=== PATIENT | female | born 2005 | race Two or more races ===

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

== ENCOUNTER 2024-10-02 15:40 | Outpatient (REF) | payer MEDICAID, SELFPAY ==
--- OUTSIDE RECORDS SUMMARY | 2024-10-02 17:56 | XMS_ITS | Encounter Summary ---
Author Organization [facility] Address [address] [place] [address] Phone Care Team Providers Care Medicare Specialist Name Role Phone Marie Aceves NP Primary Care Provider [phone] Encounter Details Date Type Department Care Team (Late st Contact Info) Description 03/25/2017 Conversion Encounter [facility] - [address] [address] Social History Tobacco Use Types Packs/Day Years Used Date Smoking Tobacco: Never Assessed Comments Unknown Sex and Gender Information Value Date Recorded Sex Assigned at Not on file Legal Sex Female 4:40 PM EDT Gender Identity Not on file Sexual Orientation Not on file documented as of this encounter Plan of Treatment Not on file documented as of this encounter Visit Diagnoses Not on filedocumented in this encounter Care Teams Medicare Specialist Relationship Specialty Start Date End Date Marie Aceves NP PCP - General 03/19/17 documented as of this encounter
--- OUTSIDE RECORDS SUMMARY | 2024-10-02 17:56 | XMS_ITS | Encounter Summary ---
Author Organization [facility] Address [address] [place] [phone] Phone Care Team Providers Care Supervisor Power Reactor Name Role Phone Marie Aceves NP Primary Care Provider [phone] Encounter Details Date Type Department Care Team (Late st Contact Info) Description 03/20/2011 Documentation [facility] [address] [place] [address] Family Medicine, Physician [address] [place], [place] [id number] Social History Tobacco Use Types Packs/Day Years [...] on filedocumented in this encounter Care Teams Supervisor Power Reactor Relationship Specialty Start Date End Date Marie Aceves NP PCP - General 03/19/17 documented as of this encounter
--- OUTSIDE RECORDS SUMMARY | 2024-10-02 17:56 | XMS_ITS | Encounter Summary ---
Author Organization [facility] Address [address] [place] [address] Phone Care Team Providers Care Aegis Console Operator Track Name Role Phone Marie Aceves NP Primary Care Provider [phone] Encounter Details Date Type Department Care Team (Late st Contact Info) Description 01/01/2012 Documentation [facility] [place] Family Medicine [address] [place] [address] Family Medicine, Physician [address] [place], [place] [address] Social History Tobacco Use Types Packs/Day Years [...] on filedocumented in this encounter Care Teams Aegis Console Operator Track Relationship Specialty Start Date End Date Marie Aceves NP PCP - General 03/19/17 documented as of this encounter
--- OUTSIDE RECORDS SUMMARY | 2024-10-02 17:56 | XMS_ITS | Encounter Summary ---
Author Organization [facility] Address [address] [place] [phone] Phone Care Team Providers Care Emg Technician Name Role Phone Marie Aceves NP Primary Care Provider [phone] Encounter Details Date Type Department Care Team (Late st Contact Info) Description 03/20/2011 Documentation [facility] [address] [place] [address] Family Medicine, Physician [address] [place], [place] [phone] Social History Tobacco Use Types Packs/Day Years [...] on filedocumented in this encounter Care Teams Emg Technician Relationship Specialty Start Date End Date Marie Aceves NP PCP - General 03/19/17 documented as of this encounter
--- OUTSIDE RECORDS SUMMARY | 2024-10-02 17:56 | XMS_ITS | Encounter Summary ---
Author Organization [facility] Address [address] [place] [phone] Phone Care Team Providers Care Employer Relations Representative Name Role Phone Marie Aceves NP Primary Care Provider [phone] Encounter Details Date Type Department Care Team (Late st Contact Info) Description 05/07/2011 Documentation [facility] [address] [place] [address] Family Medicine, Physician [address] [place], [place] [address] Social History Tobacco Use Types Packs/Day Years [...] on filedocumented in this encounter Care Teams Employer Relations Representative Relationship Specialty Start Date End Date Marie Aceves NP PCP - General 03/19/17 documented as of this encounter
--- OUTSIDE RECORDS SUMMARY | 2024-10-02 17:56 | XMS_ITS | Encounter Summary ---
Author Organization [facility] Address [address] [place] [address] Phone Care Team Providers Care Hvac Estimator Name Role Phone Marie Aceves NP Primary Care Provider [phone] Encounter Details Date Type Department Care Team (Late st Contact Info) Description 07/29/2011 Documentation [facility] Family Medicine [address] [place] [address] Family Medicine, Physician [address] [place], [place] [phone] Social History Tobacco Use Types Packs/Day Years [...] on filedocumented in this encounter Care Teams Hvac Estimator Relationship Specialty Start Date End Date Marie Aceves NP PCP - General 03/19/17 documented as of this encounter
--- OUTSIDE RECORDS SUMMARY | 2024-10-02 17:56 | XMS_ITS | Encounter Summary ---
Author Organization [employer] Address [address] [place] [address] Care Team Providers Care Metal Bonding Helper Name Role Phone Hoa Dacosat NP Primary Care Provider [phone] Reason for Visit * Reason Comments Breast Pain Encounter Details Date Type Department Care Team ([facility] st Contact Info) Description 10/02/2024 2:40 PM EST Office Visit [facility] [address] [place] [address] Breast pain in female (Primary Dx); Encounter for smoking cessation counseling Social History Tobacco Use Types Packs/Day Years Used Date Smoking Tobacco: Never Smokeless Tobacco: Never Alcohol Use Standard Drinks/Week Comments Not Currently 0 (1 standard drink = 0.6 oz pure alcohol) drinks occassionally, once every 2-3 months Alcohol Answer Date Recorded How often do you have a drink containing alcohol ? 0 04/26/2024 How many drinks containing a lcohol do you have on a typical day when you are drinking? 0 04/26/2024 How often do you have six or more drinks on one occasion? 0 04/26/2024 Depression Answer Date Recorded Patient Health Questionnaire-9 Score 6 04/26/2024 Patient Health Questionnaire-9 Score 6 04/26/2024 Last PHQ-9: Questionnaire Data Not on file 0 04/26/2024 Housing Stability Answer Date Recorded What is your housing situation today? I have ki ny 04/26/[address] you li ve. Do you have problems with any of the following? Water leaks 04/26/2024 Food Insecurity Answer Date Recorded Within the past 12 months, y ou worried that your food would run out before you got money to buy more: Sometimes True 2023 Within the past 12 months,th e food you bought just didn't last and you didn't have enough money to get more: Often true 04/26/2024 Transportation Answer Date Recorded In the past 12 months, has l ack of transportation kept you from medical appts, meetings, work or from getting things needed for daily living? Yes, it has kept me from non-medical meetings, work, or getting things that I need 04/26/2024 Utilities Answer Date Recorded In the past 12 months, has t he [employer], gas, oil or water [employer] threatened to shut off services in your home? Yes 04/26/2024 Depression Answer Date Recorded Patient Health Questionnaire-2 Score 2 04/26/2024 Internet Access Answer Date Recorded Internet Access Q1 Yes 04/26/2024 Internet Access Q2 Not on file 04/26/2024 Comments Unknown Sex and Gender Information Value Date Recorded Sex Assigned at Female 06/08/2022 10:19 AM EDT Legal Sex Female 10:19 AM EDT Gender Identity Female 06/08/2022 10:19 AM EDT Sexual Orientation Straight 06/08/2022 10 :19 AM EDT documented as of this encounter Last Filed Vital Signs Vital Sign Reading Time Taken Comments Blood Pressure 126/81 10/02/2024 2:53 PM EST Pulse 88 10/02/2024 2:53 PM EST Temperature 36.7 ??C (98 ??F) 10/02/2024 2:53 PM EST Respiratory Rate 16 10/02/2024 2:53 PM EST Oxygen Saturation - - Inhaled Oxygen Concentration - - Weight 90.3 kg (199 lb) 10/02/2024 2:53 PM EST Height - - Body Mass Index 36.4 04/26/2024 2:11 PM EDT documented in this encounter Plan of Treatment Upcoming Encounters Date Type Department Care Team (Late st Contact Info) Description 10/16/2024 1:30 PM EDT Office Visit [facility] [address] [place] [address] Hoa Dacosta NP [address] [place] [address] documented as of this encounter Visit Diagnoses Diagnosis Breast pain in female- Primary Mastodynia Encounter for smoking cessation counseling documented in this encounter Additional Health Concerns Assessment Noted Time PHQ-9 Depression Total Score: 6 04/26/20 24 2:15 PM EDT documented as of this encounter Care Teams Metal Bonding Helper Relationship Specialty Start Date End Date Hoa Dacosta NP [address] [place] [address] PCP - General Family Medicine 08/05/23 documented as of this encounter
--- OUTSIDE RECORDS SUMMARY | 2024-10-02 17:56 | XMS_ITS | Clinical Summary ---
Author Organization [employer] Address [address] [facility] 7[address] [place] [address] Care Team Providers Care Correctional Officer Chief Name Role Phone Hoa Dacosta NP Primary Care Provider [phone] Allergies Active Allergy Reactions Criticality Noted Date Comments Cat Dander 04/26/2024 Shrimp Flavor Agent (Non-Screening) Anaphylaxis High 04/26/2024 Hives and throat swelling Medications albuterol (ProAir HFA) 108 (90 Base) MCG/ACT inhaler 1 puff by inhalation route every 4 to 6 hours ;administer with spacer prn shortness of breath or wheezing 2 Active EPINEPHrine (EpiPen 2-Marcus) 0.3 MG/0.3ML injection syringe Take 0.3mg IM prn anaphylaxis 9 Active baclofen (Lioresal) 10 MG tabletIndicatio ns:Musculoskele ni pain Take one tablet Bid as needed back pain 30 tablet 4 Active nicotine polacrilex (Nicorette) 2 MG gumIndications: Encounter for smoking cessation counseling Chew 1 each (2 mg) if needed in the morning, at noon, in the evening, and at bedtime for smoking cessation. 100 each 1 5 11/22/19 25 Active Active Problems Problem Noted Date Diagnosed Date Encounter for physical examination 07/17/2024 Assessment & Plan (07/17/2024 12:05 PM EST): -age appropriate screening and immunizations up to date. Declined STI screening -low cardiovascular risk -mental health screening with moderate results -healthy social behaviors encouraged -anticipatory guidance reviewed: diet, exercise Amenorrhea 07/17/2024 Assessment & Plan (07/17/2024 12:08 PM EST): -secondary amenorrhea -patient declined testing as she has been abstinent -last ordered to eval for metabolic causes -will complete imaging pending lab results -advised close tracking -follow-up in 1 month. Will consider progesterone challenge pending negative tests and continued missed menses Generalized anxiety disorder 06/10/2016 Obesity (BMI 30-39.9) 11/03/2013 Assessment & Plan (07/17/2024 12:04 PM EST): -Healthy diet and exercise teaching completed: Eat a variety of fruit and vegetables, whole grains such as whole-wheat flour, bulgur (cracked wheat), oatmeal, and brown rice. Intake protein from beans, nuts, fish, and lean meats. Eat low-fat or fat- free dairy products. Limit highly processed foods such as hot dogs, sandwich meat, etc. Engage in minimum of 150 min of moderate intensity exercise weekly -labs ordered to assess for endocrine contribution and resulting metabolic effects Asthma 07/27/2012 Encounters Date Type Department Care Team Description 10/02/2024 2:40 PM EST Office Visit [facility] [address] [place] [address] Breast pain in female (Primary Dx); Encounter for smoking cessation counseling 07/24/[address] [facility] [address] [place] [phone] Hoa Dacosta NP No Show 07/17/[address] [facility] [address] [place] [address] Hope Naylor MA chartprep from Last 3 Months Immunizations Name Administration Dates Next Due DTaP 04/23/2009,05/11/2007,09/10/2006 DTaP / Hep B / IPV 07/08/2006,11/27/2005 DTaP, 5 pertussis antigens 07/08/2006,11/27/2005 HPV 9-Valent 11/15/2015,07/16/2015,05/13/2015 Hep A, ped/adol, 2 dose 01/16/2016,07/16/2015 Hep B, Adolescent or Pediatric 09/10/2006,2005,11/27/2005 Hib (HbOC) 07/08/2006 IPV 04/23/2009, 7,07/08/2006,11/27 Influenza injectable quadriv alent preservative free 05/04/2019,06/05/2016,05/13/2015 Influenza, Split (incl. leonardo fied surface antigen) 07/27/2012,05/06/2011,07/02/2010 Influenza, seasonal, injecta ble, preservative free 04/26/2024 MMR 04/23/2009,11/27/2005 Meningococcal MCV4P [id number] 05/13/2015 Pneumococcal Conjugate PCV 7 07/08/2006 Tdap 05/13/2015 Varicella 04/23/2009,11/27/2005 Family History Medical History Relation Name Comments Diabetes Father Hyperlipidemia Mother Relation Name Status Comments Father Mother Social History Tobacco Use Types Packs/Day Years Used Date Smoking Tobacco: Never Smokeless Tobacco: Never Tobacco Cessation:Counseling Given: Not Answered Alcohol Use Standard Drinks/Week Comments Not Currently [...] your housing situation today? I have ki yanely 04/26/[address] you li [...] the past 12 months, has t he electric, gas, oil or water company threatened to shut off services in your [...] Orientation Straight 06/08/2022 10 :19 AM EDT Last Filed Vital Signs Vital Sign Reading Time Taken Comments Blood Pressure 126/81 10/02/2024 2:53 PM EST Pulse 88 10/02/2024 2:53 PM EST Temperature 36.7 ??C (98 ??F) 10/02/2024 2:53 PM EST Respiratory Rate 16 10/02/2024 2:53 PM EST Oxygen Saturation 98% 04/26/2024 2:11 PM EDT Inhaled Oxygen Concentration - - Weight 90.3 kg (199 lb) 10/02/2024 2:53 PM EST Height 157.5 cm (5' 2 ) 04/26/2024 2:11 PM EDT Body Mass Index 36.4 04/26/2024 2:11 PM EDT Plan of Treatment Upcoming Encounters Date Type Department Care Team (Late st Contact Info) Description 10/16/2024 1:30 PM EDT Office Visit [facility] [address] [place], [place] [phone] Hoa Dacosta NP [address] [place] [address] Health Maintenance Due Date Last Done Comments Chlamydia and Gonorrhea Screening 2004 HIV Screening 2004 Lipid Panel 2004 Family Planning (PISQ) 2019 Hepatitis C Screening 2022 Pneumococcal Vaccine: Pediatrics (0 to 5 Years) and At-Risk Patients (6 to 49) Years) (1 of 2 - PCV) 2023 07/08/2006 COVID-19 Vaccine (1 - 2023- season) 2024 Alcohol/Substance Use Screening 04/26/2025 04/26/2024 Depression Screening 04/26/2025 04/26/2024, 04/26/20 24 SDOH Screening 04/26/2025 04/26/2024 Tobacco Screening 04/26/2025 04/26/2024 DTaP/Tdap/Td Vaccines (7 - Td or Tdap) 05/13/2025 05/13/2015, 04/23/2009, 05/11/2007, Additional history exists Zoster Vaccines (1 of 2) 2054 RSV Patients and Patients Aged 60 years or older (1 - 1-dose 75+ series) 2079 HIB Vaccines Completed 07/08/2006 Hepatitis B Vaccines Completed 09/10/2006, 07/08/2006, 07/08/2006, Additional history exists IPV Vaccines Completed 04/23/2009, 09/2006, 07/08/2006, Additional history exists Meningococcal Vaccine Aged Out 05/13/2015 No urszula bettina eligible based on patient's age to complete this topic HPV Vaccines Completed 11/15/2015, 03/2015, 05/13/2015 Hepatitis A Vaccines Completed 01/16/2016, 07/16/20 15 Influenza Vaccine Completed 04/26/2024, , 06/05/2016, Additional history exists RSV under 20 months Aged Out No longe r eligible based on patient's age to complete this topic Rotavirus Vaccines Aged Out No longer eligible based on patient's age to complete this topic Insurance [facility] C3 Care Teams Correctional Officer Chief Relationship Specialty Start Date End Date Hoa Dacosta NP [address] [place] [phone] PCP - General Family Medicine 08/05/23
--- OUTSIDE RECORDS SUMMARY | 2024-10-02 17:56 | XMS_ITS | Encounter Summary ---
Author Organization [facility] Address [address] [place] [address] Phone Care Team Providers Care Steaming Machine Operator Name Role Phone Marie Aceves NP Primary Care Provider [phone] Encounter Details Date Type Department Care Team (Late st Contact Info) Description 01/12/2011 Documentation [facility] Family [facility] [address] [place] [address] Family Medicine, Physician [address] [place], [place] [address] Social History Tobacco Use Types Packs/Day Years [...] on filedocumented in this encounter Care Teams Steaming Machine Operator Relationship Specialty Start Date End Date Marie Aceves NP PCP - General 03/19/17 documented as of this encounter
--- OUTSIDE RECORDS SUMMARY | 2024-10-02 17:56 | XMS_ITS | Encounter Summary ---
Author Organization [facility] Address [address] [place] [address] Phone Care Team Providers Care Sales Planning Manager Name Role Phone Marie Aceves NP Primary Care Provider [phone] Encounter Details Date Type Department Care Team (Late st Contact Info) Description 07/30/2011 Documentation [facility] Family Medicine [address] [place] [address] Family Medicine, Physician [address] [place], [place] [phone] Social History Tobacco Use Types Packs/Day Years [...] on filedocumented in this encounter Care Teams Sales Planning Manager Relationship Specialty Start Date End Date Marie Aceves NP PCP - General 03/19/17 documented as of this encounter
--- OUTSIDE RECORDS SUMMARY | 2024-10-02 17:56 | XMS_ITS | Encounter Summary ---
Author Organization [facility] Address [address] [place] [address] Phone Care Team Providers Care Carpenter Assistant Installer Name Role Phone Marie Aceves NP Primary Care Provider [phone] Encounter Details Date Type Department Care Team (Late st Contact Info) Description 03/19/2011 Documentation [facility] Family Medicine [address] [place] [address] Family Medicine, Physician [address] [place], [place] [phone] Social History Tobacco Use Types Packs/Day Years [...] on filedocumented in this encounter Care Teams Carpenter Assistant Installer Relationship Specialty Start Date End Date Marie Aceves NP PCP - General 03/19/17 documented as of this encounter
--- OUTSIDE RECORDS SUMMARY | 2024-10-02 17:56 | XMS_ITS | Clinical Summary ---
Author Organization [facility] Address [address] [place] [address] Phone Care Team Providers Care Ecological Economist Name Role Phone OcalaMarie canales YONATHAN Primary Care Provider [phone] Immunizations Immunization Administration Dates Next Due DTaP 04/23/2009,05/11/2007,09/10/2006 DTaP / Hep B / IPV 07/08/2006,11/27/2005 Hep B, ped/adol 09/10/2006 Hib (HbOC) 07/08/2006 IPV 04/23/2009,09/10/2006 Influenza Split 05/06/2011,07/02/2010 MMR 04/23/2009,11/27/2005 Pneumococcal Conjugate 07/08/2006 Varicella 04/23/2009,11/27/2005 Family History Relation Name Status Comments Sister Alive Sister: Alive a nd well Social History Tobacco Use Types Packs/Day Years Used Date Smoking Tobacco: Never Assessed Comments Unknown Sex and Gender Information Value Date Recorded Sex Assigned at Not on file Legal Sex Female 4:40 PM EDT Gender Identity Not on file Sexual Orientation Not on file Last Filed Vital Signs Vital Sign Reading Time Taken Comments Blood Pressure 98/70 07/29/2011 12:00 AM EST Pulse - - Temperature 35.2 ??C (95.4 ??F) 05/06/2011 12:00 AM E DT Respiratory Rate - - Oxygen Saturation - - Inhaled Oxygen Concentration - - Weight 26.3 kg (58 lb) 07/29/2011 12:00 AM EST Height 120.1 cm (3' 11.3 ) 07/29/2011 12:[address] Body Mass Index 18.23 07/29/2011 12:00 AM EST Plan of Treatment Health Maintenance Due Date Last Done Comments DTaP,Tdap,and Td Vaccines (6 - Tdap) 2015 04/23/2009, 05/11/2007, 09/10/2006, Additional history exists HPV Vaccines (1 - 3-dose series) 2019 Men B Vaccine (1 of 2 - Standard) 2020 Influenza Vaccines (#1) 2024 05/06/2011, 07/02 COVID-19 Vaccine ( - season) 2024 HIB Vaccines Completed 07/08/2006 Pneumococcal Vaccine Completed 07/08/2006 Hepatitis B Vaccines Completed 09/10/2006, 07/08/2006, 11/27/2005 IPV Vaccines Completed 04/23/2009, 09/2006, 07/08/2006, Additional history exists MMR Vaccines Completed 04/23/2009, 11/27/2005 Varicella Vaccines Completed 04/23/2009, 11/27/2005 Hepatitis A Vaccines Aged Out No long er eligible based on patient's age to complete this topic Meningococcal Vaccine Aged Out No urszula bettina eligible based on patient's age to complete this topic Care Teams Ecological Economist Relationship Specialty Start Date End Date Marie Aceves NP PCP - General 03/19/17
[2024-10-02 18:15] LABS: Color Urine Yellow; Glucose Urine UA Negative (Negative); Leukocyte Esterase Urine Negative (Negative); Nitrite Urine Negative (Negative); PH 8.5 (5.0-9.0); Specific Gravity - Urine 1.025 (1.005-1.025); Urine Blood Negative (Negative); Urine Ketones Negative (Negative); Urine Protein Negative (Neg-Trace)
[2024-10-02 18:16] LABS: Appearance Urine Clear
[2024-10-02 18:23] LABS: Bacteria Urine None Seen (None Seen); Hyaline Casts Urine 0-2 /LPF (0-2); RBC Urine 0-2 /HPF (0-2); Squamous Epithelial Cell Urine 0-2 /HPF (0-2); WBC Urine 0-5 /HPF (0-5)
[2024-10-02 18:24] LABS: Estimated Average Glucose 103 mg/dL; Hemoglobin A1c % 5.2 % (<6.0)
[2024-10-02 18:36] LABS: Alanine Aminotransferase 10 U/L (0-31); Albumin Level 4.5 g/dL (3.5-5.0); Anion Gap 13 (12-20); Aspartate Amino Transferase 18 U/L (5-31); Bilirubin Total 0.4 mg/dL (0.0-1.0); Blood Urea Nitrogen 8 mg/dL (9-16); Calcium 9.5 mg/dL (8.4-10.2); Carbon Dioxide 25 mmol/L (22-29); Chloride 106 mmol/L (96-108); Cholesterol 169 mg/dL (<200); Estimated Glomerular Filt Rate > 60; Glucose Random 87 mg/dL (60-115); HDL Cholesterol 48 mg/dL (>40); LDL Cholesterol Calculated 101 mg/dL (<100); Potassium 3.9 mmol/L (3.3-5.1); Sodium 140 mmol/L (135-145); Total Protein 8.2 g/dL (6.5-8.0); Triglycerides 102 mg/dL (<150)
[2024-10-02 18:46] LABS: Alkaline Phosphatase 71 U/L (39-117)
[2024-10-02 18:57] LABS: Free T4 (Free Thyroxine) 1.04 ng/dL (0.71-1.85); TSH reflex Free T4 1.33 uIU/mL (0.32-4.0); Vitamin D 25-OH Total 30.3 ng/mL (>30)
[2024-10-03 08:24] LABS: Prolactin 6.6 ng/mL
== END 2024-10-02 15:41 | disposition home or self-care (01) ==
LOC: HO.HHCL 15:40
PROVIDERS: Visit Provider Nurse Practitioner
DX: E66.9 Obesity, unspecified (principal); N91.2 Amenorrhea, unspecified
CPT/HCPCS: 36415; 80053; 80061; 81001; 82306; 83036; 84146; 84439; 84443

== ENCOUNTER 2025-07-20 06:42 | Emergency (ER) | payer MEDICAID, SELFPAY ==
--- NOTE | ~2025-07-20 | US_ITS ---
EXAMINATION: US ABDOMEN LIMITED CLINICAL INFORMATION: Right upper quadrant abdominal pain.. COMPARISON: None available. TECHNIQUE: Real-time ultrasound of the gallbladder is seen grayscale technique. FINDINGS: Gallbladder is fluid-filled without intraluminal abnormality. No pericholecystic fluid collection or gallbladder wall thickening. Common bile duct measures 4 mm. US/US abdomen limited IMPRESSION: No cholelithiasis or choledocholithiasis. Electronically signed by: Enrico Gorman MD 07/20/2025 09:36 AM EST
[2025-07-20 06:49] VITALS: BP 130/75; PULSE 116; O2SAT 97
[2025-07-20 07:08] VITALS: BP 111/69; PULSE 101; RESP 18; TEMP 36.7; O2SAT 97; BMI 33.3
--- OUTSIDE RECORDS SUMMARY | 2025-07-20 07:15 | XMS_ITS | Encounter Summary ---
Author Organization [facility] Address [address] [place] [phone] Phone Care Team Providers Care Radiology Resident Name Role Phone Marie Aceves NP Primary Care Provider [phone] Encounter Details Date Type Department Care Team (Late st Contact Info) Description 03/19/2011 Documentation [facility] Family Medicine [address] [place] [address] Family Medicine, Physician [address] [place], [place] [phone] Social History Tobacco Use Types Packs/Day Years [...] on filedocumented in this encounter Care Teams Radiology Resident Relationship Specialty Start Date End Date Marie Aceves NP PCP - General 03/19/17 documented as of this encounter
--- OUTSIDE RECORDS SUMMARY | 2025-07-20 07:15 | XMS_ITS | Encounter Summary ---
Author Organization [facility] Address [address] [place] [address] Phone Care Team Providers Care Information Clerk Brokerage Name Role Phone Marie Aceves NP Primary Care Provider [phone] Encounter Details Date Type Department Care Team (Late st Contact Info) Description 03/25/2017 Conversion Encounter [facility] - [address] [address] Social History Tobacco Use Types Packs/Day Years [...] on filedocumented in this encounter Care Teams Information Clerk Brokerage Relationship Specialty Start Date End Date Marie Aceves NP PCP - General 03/19/17 documented as of this encounter
--- OUTSIDE RECORDS SUMMARY | 2025-07-20 07:15 | XMS_ITS | Clinical Summary ---
Author Organization [facility] Address [address] [place] [address] Phone Care Team Providers Care Fly Worker Name Role Phone YolaMarie YONATHAN Primary Care Provider [phone] Immunizations Immunization Administration Dates Next Due DTaP [...] AM EST Pulse - - Temperature 35.2 C (95.4 F) 05/06/2011 12:00 AM EDT Respiratory Rate - - Oxygen Saturation - [...] 2 - Standard) 2020 Influenza Vaccines (#1) 2025 05/06/2011, 07/02 COVID-19 Vaccine ( - season) 2025 HIB Vaccines Completed 07/08/2006 Pneumococcal Vaccine Completed [...] age to complete this topic Care Teams Fly Worker Relationship Specialty Start Date End Date Marie Aceves NP PCP - General 03/19/17
--- OUTSIDE RECORDS SUMMARY | 2025-07-20 07:15 | XMS_ITS | Encounter Summary ---
Author Organization [facility] Address [address] [place] [address] Phone Care Team Providers Care Board Mixer Tender Name Role Phone Marie Aceves NP Primary Care Provider [phone] Encounter Details Date Type Department Care Team (Late st Contact Info) Description 07/30/2011 Documentation [facility] [place] [facility] [address] [place] [address] Family Medicine, Physician [address] [place], [place] [phone] Social History Tobacco Use Types Packs/Day Years [...] on filedocumented in this encounter Care Teams Board Mixer Tender Relationship Specialty Start Date End Date Marie Aceves NP PCP - General 03/19/17 documented as of this encounter
--- OUTSIDE RECORDS SUMMARY | 2025-07-20 07:15 | XMS_ITS | Encounter Summary ---
Author Organization [facility] Address [address] [place] [address] Phone Care Team Providers Care Food Service Substitute Name Role Phone Marie Aceves NP Primary Care Provider [phone] Encounter Details Date Type Department Care Team (Late st Contact Info) Description 01/12/2011 Documentation EM Family Medicine [address] [place] [address] Family Medicine, Physician [address] [place], [place] [phone] Social History Tobacco Use Types Packs/Day Years [...] on filedocumented in this encounter Care Teams Food Service Substitute Relationship Specialty Start Date End Date Marie Aceves NP PCP - General 03/19/17 documented as of this encounter
--- OUTSIDE RECORDS SUMMARY | 2025-07-20 07:15 | XMS_ITS | Encounter Summary ---
Author Organization [facility] Address [address] [place] [address] Phone Care Team Providers Care Sales/Marketing Name Role Phone Marie Aceves NP Primary Care Provider [phone] Encounter Details Date Type Department Care Team (Late st Contact Info) Description 07/29/2011 Documentation [facility] Family Medicine [address] [place] [address] Family Medicine, Physician [address] [place], [place] [phone] Social History Tobacco Use Types Packs/Day Years [...] on filedocumented in this encounter Care Teams Sales/Marketing Relationship Specialty Start Date End Date Marie Aceves NP PCP - General 03/19/17 documented as of this encounter
--- OUTSIDE RECORDS SUMMARY | 2025-07-20 07:15 | XMS_ITS | Encounter Summary ---
Author Organization [facility] Address [address] [place] [address] Phone Care Team Providers Care Vocational Horticulture Instructor Name Role Phone Marie Aceves NP Primary Care Provider Encounter Details Date Type Department Care Team (Late st Contact Info) Description 03/20/2011 Documentation [facility] [place] [address] [place] [address] Family Medicine, Physician [address] [place], [place] [phone] Social History Tobacco Use Types Packs/Day Years [...] on filedocumented in this encounter Care Teams Vocational Horticulture Instructor Relationship Specialty Start Date End Date Marie Aceves NP PCP - General 03/19/17 documented as of this encounter
--- OUTSIDE RECORDS SUMMARY | 2025-07-20 07:15 | XMS_ITS | Encounter Summary ---
Author Organization [employer] Address [address] [facility] [address] [place] [address] Care Team Providers Care Patient Case Manager Name Role Phone Hoa Dacosta NP Primary Care Provider [phone] Encounter Details Date Type Department Care Team (Latest Contact Info) Description 07/19/2025 Travel Social History Tobacco Use Types Packs/Day Years [...] is your housing situation today? I have kiponcoh ny 04/26/[address] you [...] AM EDT documented as of this encounter Plan of Treatment Upcoming Encounters Date Type Department Care Team (Late st Contact Info) Description 07/20/2025 9:45 AM EST Office Visit [facility] [address] [place] [address] Hoa Dacosta NP [address] [place] [address] documented as of this encounter Visit Diagnoses Not on filedocumented in this encounter Additional Health Concerns Assessment Noted Time PHQ-9 Depression Total Score: 6 04/26/20 24 2:15 PM EDT documented as of this encounter Care Teams Patient Case Manager Relationship Specialty Start Date End Date Hoa Dacosta NP [address] [place] [address] PCP - General Family Medicine 08/05/23 documented as of this encounter
--- OUTSIDE RECORDS SUMMARY | 2025-07-20 07:15 | XMS_ITS | Encounter Summary ---
Author Organization [facility] Address [address] [place] [address] Phone Care Team Providers Care Family Resource Management Professor Name Role Phone Marie Aceves NP Primary Care Provider [phone] Encounter Details Date Type Department Care Team (Late st Contact Info) Description 05/07/2011 Documentation EM Family Medicine [address] [place] [address] Family Medicine, Physician [address] [place], [place] [phone] Social History Tobacco Use Types Packs/Day Years [...] on filedocumented in this encounter Care Teams Family Resource Management Professor Relationship Specialty Start Date End Date Marie Aceves NP PCP - General 03/19/17 documented as of this encounter
--- OUTSIDE RECORDS SUMMARY | 2025-07-20 07:15 | XMS_ITS | Encounter Summary ---
Author Organization [employer] Address [address] [facility] 7 [place] [address] Care Team Providers Care Lettuce Trimmer Name Role Phone Hoa Dacosta NP Primary Care Provider [phone] Reason for Visit * Reason Onset Date Comments CHARTPREP 07/19/2025 Encounter Details Date Type Department Care Team ([facility] Contact Info) Description 07/19/[address] [facility] [address] [place] [address] Hoa Dacosta NP [address] [place] [address] CHARTPREP Social History Tobacco Use Types Packs/Day Years [...] your housing situation today? I have ki sing 04/26/[address] you li [...] AM EDT documented as of this encounter Miscellaneous Notes * Telephone Encounter - Hope Naylor MA - 07/19/2025 12:58 PM EST Chart Prep Labs: done Images: not done Referrals: not done Vaccines due: Covid, Flu, PCV20, Tdap, and MCV4 Screenings: pap smear, STI screening, and LMP,Hep C screening,family screening,HIV screening,alcohol/substance use screening Overdue care gaps: SBIRT, SDOH, PHQ-9, JEAN CLAUDE-7, Oral health screening, Disability screen, and Tobacco documented in this encounter Plan of Treatment Upcoming Encounters Date Type Department Care Team (Late st Contact Info) Description 07/20/2025 9:45 AM EST Office Visit [facility] [address] [place] [phone] Hoa Dacosta NP [address] [place] [address] documented as of this encounter Visit Diagnoses Not on filedocumented in this encounter Additional Health Concerns Assessment Noted Time PHQ-9 Depression Total Score: 6 04/26/20 24 2:15 PM EDT documented as of this encounter Care Teams Lettuce Trimmer Relationship Specialty Start Date End Date Hoa Dacosta NP [address] [place] [address] PCP - General Family Medicine 08/05/23 documented as of this encounter
--- OUTSIDE RECORDS SUMMARY | 2025-07-20 07:15 | XMS_ITS | Clinical Summary ---
Author Organization [employer] Address [address] [place] [address] [address] [place] [address] Care Team Providers Care Technical Training Manager Name Role Phone Hoa Dacosta NP Primary Care Provider [phone] Allergies Active Allergy Reactions Criticality Noted Date [...] for smoking cessation. 100 each 1 5 Active Active Problems Problem Noted Date Diagnosed [...] Encounters Date Type Department Care Team Description 07/19/2025 Telephone [facility] [address] [place] [phone] Hoa Dacosta NP CHARTPREP 07/19/2025 Travel 07/10/2025 Patient Outreach [address] [address] Hoa Dacosta NP Pre-visit Planning (Pre-visit planning - unable to LVM ( NOT AVAILABLE -See notes ) ) 05/21/2025 Telephone [facility] [address] [place] [phone] Hoa Dacosta NP April recall from Last 3 Months Immunizations Immunization Administration Dates Next Due DTaP [...] 88 10/02/2024 2:53 PM EST Temperature 36.7 C (98 F) 10/02/2024 2:53 PM EST Respiratory Rate 16 [...] Description 07/20/2025 9:45 AM EST Office Visit [facility] [address] [place] [address] Hoa Dacosta NP [address] [place] [address] Health Maintenance Due Date Last Done Comments Chlamydia and Gonorrhea Screening 2004 HIV Screening 2004 Alcohol/Substance Use Screening 2016 Family Planning (PISQ) 2019 Meningococcal B Vaccine (1 of 2 - Standard) 2020 Hepatitis C Screening 2022 Pneumococcal Vaccine: Pediatrics (0 to 5 Years) and At-Risk Patients (6 to 49) Years (1 of 2 - PCV) 2023 07/08/2006 Pap Smear 2025 COVID-19 Vaccine (1 - season) 2025 Influenza Vaccine (#1) 2025 , 05/04/2019, 06/05/2016, Additional history exists Depression Screening 04/26/2025 04/26/2024, 04/26/20 24 SDOH Screening 04/26/2025 04/26/2024 Tobacco Screening 04/26/2025 04/26/2024 DTaP/Tdap/Td Vaccines (7 - Td or Tdap) 05/13/2025 05/13/2015, 04/23/2009, 05/11/2007, Additional history exists Disability Screening 10/02/2025 10/02/2024 Lipid Panel 10/02/2029 10/02/2024 Zoster Vaccines (1 of 2) 2054 RSV [...] Hepatitis A Vaccines Completed 01/16/2016, 07/16/20 15 RSV under 20 months Aged Out No longe r eligible based on patient's age to complete this topic Rotavirus Vaccines Aged Out No longer eligible based on patient's age to complete this topic Procedures Procedure Name Priority Date/Time Associated Diagnosis Comments LIPID PANEL, STANDARD Routine 10/02/2024 3:45 PM EST Obesity (BMI 30-39.9) from Last 3 Months or Most Recently Relevant to Health Maintenance Results * (ABNORMAL) Lipid Panel, Standard (10/02/2024 3:45 PM EST) Triglycerides 102 <150 mg/dL [facility] Comment:Desirable Triglyceri de: less than 150 mg/dLBorderline High Triglyceride 150-199 mg/dLHigh Triglyceride: 200-499 mg/dLVery High Triglyceride: greater than or equal to 5OO mg/dL Cholesterol 169 <200 mg/dL [facility] Comment:Desirable Cholestero l: less than 200 mg/dLBorderline High Cholesterol: 200-239 mg/dLHigh Cholesterol: greater than 239 mg/dL LDL Cholesterol Calculated 101(H) <100 mg/dL [facility] Comment:Desirable LDL: less than 100 mg/dLNear Optimal/Above Optimal LDL: 110- 129 mg/dLBorderline High LDL: 130-159 mg/dLHigh LDL: 160-189 mg/dLVery High LDL: greater than or equal to 190 mg/dL HDL Cholesterol 48 >40 mg/dL [facility] Comment:Desirable HDL: great er than 40 mg/dL Note: This HDL assay may give artificially low results in patients with liver disease. Blood Venous blood specimen / Unknown 10/02/2024 3:45 PM EST 10/02/2024 5:58 PM EST Hoa Dacosta NP LAB BLOOD ORDERABLES Final Resu lt [facility] [address] [place] [phone] from Last 3 Months or Most Recently Relevant to Health Maintenance Insurance [facility] C3 Care Teams Technical Training Manager Relationship Specialty Start Date End Date Hoa Dacosta NP [address] [place] [phone] PCP - General Family Medicine 08/05/23
--- OUTSIDE RECORDS SUMMARY | 2025-07-20 07:15 | XMS_ITS | Encounter Summary ---
Author Organization [facility] Address [address] [place] [phone] Phone Care Team Providers Care Cold Rolling Coordinator Name Role Phone Marie Aceves NP Primary Care Provider [phone] Encounter Details Date Type Department Care Team (Late st Contact Info) Description 01/01/2012 Documentation [facility] [place] [address] [place] [address] Family Medicine, Physician [address] [place], [place] [address] Social History Tobacco Use Types Packs/Day Years [...] on filedocumented in this encounter Care Teams Cold Rolling Coordinator Relationship Specialty Start Date End Date Marie Aceves NP PCP - General 03/19/17 documented as of this encounter
--- OUTSIDE RECORDS SUMMARY | 2025-07-20 07:15 | XMS_ITS | Encounter Summary ---
Author Organization [facility] Address [address] [place] [phone] Phone Care Team Providers Care Wood Ski Maker Name Role Phone Marie Aceves NP Primary Care Provider [phone] Encounter Details Date Type Department Care Team (Late st Contact Info) Description 03/20/2011 Documentation [facility] [place] Family Medicine [address] [place] [address] Family Medicine, Physician [address] [place], [place] [phone] Social History Tobacco Use Types Packs/Day Years [...] on filedocumented in this encounter Care Teams Wood Ski Maker Relationship Specialty Start Date End Date Marie Aceves NP PCP - General 03/19/17 documented as of this encounter
--- NOTE | 2025-07-20 07:57 | ED_ITS ---
HPI - Abdominal Pain General Chief Complaint: Abdominal Pain Stated Complaint: UPPER ABD PAIN,N/V PER EMS Time Seen by Provider: 07/20/25 07:00 Source: patient Mode of arrival: ambulatory Limitations: no limitations History of Present Illness ED Provider: [facility] narrative: The patient is a 20-year-old female presenting with acute onset (?2.5 h ago) burning pain localized above the umbilicus, between the costal margins. She describes a sensation of abdominal ?expansion? with both inward and outward pressure worsening the discomfort. Pain began after limited oral intake yesterday (eggs, ricks, a few snacks) and worsens with eating. Associated nausea is reported; no vomiting. She denies prior similar episodes, gallbladder disease, ovarian pathology, appendicitis, or diarrhea. Mild vaginal discharge present but no vaginal bleeding. She believes menstruation is imminent and feels is unlikely. Patient reports smoking weed. Related Data Previous Rx's ?Medication ?Instructions ?Recorded penicillin V potassium 500 mg 500 mg PO TID #21 tabs 0 10/28/22 tablet famotidine 20 mg tablet 20 mg PO BEDTIME #30 tabs ondansetron 4 mg disintegrating 4 mg PO Q8H PRN nausea and 07/20/25 tablet vomiting #4 tabs sucralfate 1 gram tablet (Carafate) 1 g PO Q6H 7 days #28 tabs 07/20/25 Allergies Allergy/AdvReac Type Severity Reaction Status Date / Time cat dander (CAT) Allergy Unknown SHORTNESS Verified 07/20/25 07:17 OF BREATH shrimp (SHRIMP) Allergy Unknown SHORTNESS Verified 07/20/25 07:17 OF BREATH Review of Systems Review of Systems GI: Positive for epigastric abdominal pain and nausea. Denies diarrhea. /RN LONG TERM CARE: Mild vaginal discharge, denies vaginal bleeding; possible imminent menses. All other systems not specifically discussed. Constitutional: Reports as per [facility] Social History Social History Advance Directives: No Advance Directives Information Provided: Yes Do you have a plan to hurt others: No Plan Physical Exam ED Exam Exam: * Cardiovascular: S1, S2 normal; regular rate and rhythm. * Respiratory: Lungs clear to auscultation bilaterally; no wheezes, rales, rhonchi, or pulmonary edema. * Abdomen: Focal epigastric tenderness to palpation. No tenderness in RUQ, LUQ, RLQ, LLQ, or suprapubic region. * alert and oriented x4 Vital Signs: Vital Signs - 24 hr 07/20/25 07:08 07/20/25 08:00 07/20/25 10:00 Temperature 98.1 F Pulse Rate 101 H 72 78 Respiratory Rate 18 20 20 Blood Pressure 111/69 114/70 110/66 Pulse Oximetry 97 96 96 Oxygen Delivery Method Room Air BMI result Body Mass Index 33.3 Medical Decision Making Medical Decision Making MDM Narrative: Basic laboratory panel ordered to evaluate liver function, gallbladder, and pancreatic enzymes. Urine/serum test ordered. Provider discussed possible need for abdominal ultrasound if laboratory abnormalities are detected. Dietary counseling provided regarding smaller, lower-fat meals to reduce gallbladder stimulation. Symptomatic medications to be given for pain and nausea. * Labs: Laboratory tests ordered to evaluate liver, gallbladder, pancreas, and status. * Imaging: Abdominal ultrasound if laboratory findings are abnormal. * Medications: Will provide medications to make patient feel better * Diet: Hatch Supervisor to eat smaller, low-fat meals; avoid fatty foods (e.g., ricks) to decrease gallbladder stimulation. * Re-evaluate following lab results and response to medications. 9:06 AM 07/20/2025 (Dr. Ole Oswald): LFTs unremarkable, continues to have pain despite initial onset of medications, at this point we will obtain ultrasound of the right upper quadrant and additional pain medications 10:29 AM 07/20/2025 (Dr. Ole Oswald): feeling better discussed workup we will discharge IMPRESSION: No cholelithiasis or choledocholithiasis. Differential Diagnosis Differential Diagnoses: The differential diagnosis associated with the presentation includes * Gastritis/Peptic Ulcer Disease: Burning epigastric pain worsened by eating and localized above the umbilicus is classic for gastritis or peptic ulcer disease. Associated nausea further supports this etiology. * Biliary colic/cholelithiasis: Pain onset after a fatty meal (eggs, ricks) raises suspicion for gallbladder pathology, although the absence of right upper quadrant tenderness and classic biliary symptoms makes this less definitive. * Acute pancreatitis: Severe epigastric pain could indicate pancreatitis, but lack of vomiting and absence of significant risk factors (e.g., alcohol use, gallstones) make this less likely; still considered due to pain location and severity. * Functional dyspepsia: Acute onset of upper abdominal discomfort with no prior episodes and a benign exam may represent functional dyspepsia, especially if labs and imaging are unrevealing. * Less likely etiologies: Early appendicitis (pain not localized to RLQ), gynecologic causes such as ovarian cyst (no significant pelvic symptoms), and -related pain (patient feels is unlikely, but test pending) are considered but less probable based on history and exam. Admission/Observation Consideration of admission/observation: Escalation of care including admission/observation considered Lab Data MDM Lab Attestation statement: I reviewed the patient's lab results. 07/20/25 07:58 07/20/25 07:58 Labs: Lab Results 07/20/25 Range/Units 07:58 WBC 15.7 H (4.8-10.8) X10*3/uL RBC 4.85 (4.20-5.50) X10*6/uL Hgb 13.7 (12.0-16.0) g/dl Hct 41.5 (37.0-47.0) % MCV 85.6 (80.0-98.0) fL MCH 28.2 (27.0-33.0) pg MCHC 33.0 (31.0-35.0) g/dl RDW 12.7 (11.0-16.0) % Plt Count 172 (160-400) X10*3/uL MPV 10.8 (9.4-12.3) fL Immature Gran % (Auto) 0.3 (0.0-0.4) % Neut % (Auto) 89.2 H (45-73) % Lymph % (Auto) 4.9 L (20-40) % [place] % (Auto) 5.4 (2-11) % Eos % (Auto) 0.0 (0-4) % Baso % (Auto) 0.2 (0-2) % Lymph # (Auto) 0.8 L (1.2-4.9) X10*3/uL [place] # (Auto) 0.9 (0.1-1.2) X10*3/uL Eos # (Auto) 0.0 (0.0-0.4) X10*3/uL Baso # (Auto) 0.0 (0.0-0.2) X10*3/uL Abs Immat Gran (auto) 0.05 H (0.00-0.03) X10*3/uL Absolute Neuts (auto) 14.0 H (2.0-8.3) x10*3/uL Absolute Nucleated RBC 0.000 (0.0-0.012) X10*3/uL Nucleated RBC % (auto) 0.0 (0.0-0.2) /100WBC Sodium 138 (135-145) mmol/L Potassium 3.6 (3.3-5.1) mmol/L Chloride 107 (96-108) mmol/L Carbon Dioxide 22 (22-29) mmol/L Anion Gap 13 (12-20) BUN 9 (9-16) mg/dL Creatinine 0.78 (0.5-1.4) mg/dL Estim Creat Clear Calc 113.6 Estimated GFR > 60 Random Glucose 112 (60-115) mg/dL Calcium 9.2 (8.4-10.2) mg/dL Total Bilirubin 0.7 (0.0-1.0) mg/dL AST 15 (5-31) U/L ALT 7 (0-31) U/L Alkaline Phosphatase 61 (39-117) U/L Total Protein 7.0 (6.5-8.0) g/dL Albumin 4.5 (3.5-5.0) g/dL Lipase 14 (8-78) U/L Beta HCG, Quant < 2 mIU/mL Radiology Impression Discussion of test interpretation with radiology: I have reviewed the radiologist's reading. Medications Administered Discontinued Medications Generic Name Dose Route Start Last Admin Trade Name Michelle PRN Reason Stop Dose Admin Al Hydroxide/Mg Hydroxide 15 ml 07/20/25 07:38 07/20/25 08:06 Magnesium Hydrox/Alum Hydrox 30 Ml Oral.Susp PO 07/20/25 07:39 15 ml ONCE ONE Administration Belladonna Alkaloids/Phenobarbital 5 ml 07/20/25 09:06 07/20/25 09:16 Phenobarb/Hyoscy/Atropine/Scop 10 Ml Elixir PO 07/20/25 09:07 5 ml ONCE ONE Administration Famotidine 20 mg 07/20/25 07:38 07/20/25 08:05 Famotidine 20 Mg Tablet PO 07/20/25 07:39 20 mg ONCE ONE Administration Ketorolac Tromethamine 15 mg 07/20/25 07:38 07/20/25 08:07 Ketorolac Tromethamine 15 Mg/Ml Vial IM 07/20/25 07:39 15 mg ONCE ONE Administration Lidocaine HCl 15 ml 07/20/25 07:38 07/20/25 08:06 Lidocaine Hcl Viscous 2 % 15 Ml Solution PO 07/20/25 07:39 15 ml ONCE ONE Administration Sucralfate 1 gm 07/20/25 09:06 07/20/25 09:16 Sucralfate 1 Gm Tablet PO 07/20/25 09:07 1 gm ONCE ONE Administration Discharge Plan Discharge Clinical Impression: Abdominal pain, epigastric Additional Instructions: use Zofran as needed for nausea and vomiting Carafate 1 pill 20 minutes before any meals for the next 1 week and use famotidine before bedtime to help with the acid suppression, your blood work, ultrasound of the gallbladder has been reassuring follow up with the PCP, any other issues or concerns come back to the ER Prescriptions: New sucralfate [Carafate] 1 gram tablet 1 g PO Q6H 7 Days Qty: 28 0RF famotidine 20 mg tablet 20 mg PO BEDTIME Qty: 30 0RF ondansetron 4 mg tablet,disintegrating 4 mg PO Q8H PRN (Reason: nausea and vomiting) Qty: 4 0RF No Action penicillin V potassium 500 mg tablet 500 mg PO TID Qty: 21 0RF Print Language: Sudanese
[2025-07-20 08:00] VITALS: BP 114/70; PULSE 72; RESP 20; O2SAT 96
[2025-07-20 08:01] LABS: MANUAL DIFF FLAG NO
[2025-07-20] MEDS: Lidocaine HCl Viscous 2 % 15 ML SOLUTION PO (08:06)
[2025-07-20] MEDS: Magnesium Hydrox/Alum Hydrox 30 ML ORAL.SUSP 15 ML PO (08:06)
[2025-07-20 08:08] LABS: Hematocrit 41.5 % (37.0-47.0); Hemoglobin 13.7 g/dl (12.0-16.0); Imm Gran Abs Auto 0.05 X10*3/uL (0.00-0.03); Imm Gran Pct Auto 0.3 % (0.0-0.4); Lymphocytes Absolute Auto 0.8 X10*3/uL (1.2-4.9); Mean Corpuscular HGB Conc 33.0 g/dl (31.0-35.0); Mean Corpuscular Hemoglobin 28.2 pg (27.0-33.0); Mean Corpuscular Volume 85.6 fL (80.0-98.0); NRBC Abs Auto 0.000 X10*3/uL (0.0-0.012); NRBC Pct Auto 0.0 /100WBC (0.0-0.2); Platelet Count 172 X10*3/uL (160-400); Red Blood Count 4.85 X10*6/uL (4.20-5.50); White Blood Count 15.7 X10*3/uL (4.8-10.8)
[2025-07-20 08:27] LABS: Alanine Aminotransferase 7 U/L (0-31); Albumin Level 4.5 g/dL (3.5-5.0); Alkaline Phosphatase 61 U/L (39-117); Anion Gap 13 (12-20); Aspartate Amino Transferase 15 U/L (5-31); Blood Urea Nitrogen 9 mg/dL (9-16); Calcium 9.2 mg/dL (8.4-10.2); Carbon Dioxide 22 mmol/L (22-29); Chloride 107 mmol/L (96-108); Creatinine Clr Calc Pharmacy 113.6; Estimated Glomerular Filt Rate > 60; Lipase 14 U/L (8-78); Potassium 3.6 mmol/L (3.3-5.1); Sodium 138 mmol/L (135-145); Total Protein 7.0 g/dL (6.5-8.0)
[2025-07-20] MEDS: PHENobarb/Hyoscy/Atropine/Scop 10 ML ELIXIR 5 ML PO (09:16)
[2025-07-20 10:00] VITALS: BP 110/66; PULSE 78; RESP 20; O2SAT 96
[2025-07-20 10:57] VITALS: BP 110/66; PULSE 78; RESP 20; TEMP 36.8; O2SAT 96
== END 2025-07-20 10:58 | disposition home or self-care (01) ==
PROVIDERS: Emergency Provider Emergency Medicine
DX: R10.13 Epigastric pain (principal); R11.0 Nausea
CPT/HCPCS: 36415; 76705; 80053; 83690; 84702; 85025; 96372; 99283; 99284; J1885

== ENCOUNTER → 2025-07-20 09:06 | Outpatient (BNV) | payer MEDICAID, SELFPAY | PROVIDERS: Emergency Provider Emergency Medicine; Visit Provider Radiology Diagnostic Radiology | DX: R10.11 Right upper quadrant pain (principal) | CPT/HCPCS: 76705 ==